=== PATIENT | male | born 1970 | race Caucasian/White ===

== ENCOUNTER 2019-10-07 08:34 | Inpatient (IN) ==
[2019-10-07] MEDS ORDERED: DIATRIZOATE MEGLU/DIATRIZO SOD 30 ML BOTTLE PO ONE (08:35)
[2019-10-07] MEDS ORDERED: IOPAMIDOL 100 ML BOTTLE IV ONE (08:35)
[2019-10-07] MEDS ORDERED: ONDANSETRON 4 MG/2 ML VIAL IV ONE (09:12)
[2019-10-07] MEDS ORDERED: LACTATED RINGERS 1,000 ML IV ONE (09:12)
--- NOTE | 2019-10-07 09:15 | Emergency Department Note ---
General Adult HPI - General Chief complaint: Back Pain/Injury Stated complaint: severe back pain, unable to walk Time Seen by Provider: 10/07/19 08:41 Source: patient, family Mode of arrival: wheelchair Limitations: no limitations - History of Present Illness HPI Narrative: This patient developed left upper quadrant pain yesterday and during the night i t moved to the right upper quadrant and into the right side of the back. This moderately severe and associated with some nausea and vomiting. He said food did not make it worse. He is never had anything like this before. - Related Data Previous Rx's Medication Instructions Recorded metformin 1,000 mg tablet 1,000 mg PO BID #180 tab 01/08/19 insulin glargine 100 unit/mL (3 14 unit SUB-Q QDAY #15 ml 07/23/19 mL) subcutaneous pen glipizide 10 mg tablet, extended 20 mg PO BID #360 tab 10/05/19 release 24 hr penicillin V potassium 500 mg 500 mg PO Q12H #20 tab 10/05/19 tablet Allergies Allergy/AdvReac Type Severity Reaction Status Date / Time No Known Drug Allergies Allergy Verified 10/07/19 08:37 Review of Systems All systems ED: reviewed and negative except as stated. Past Medical History - Past Medical History [facility] Narrative: Medical History (Last Reviewed 07/23/19 @ 08:57 by Jenni Leigh PA-C) Back pain (Chronic) Joint pain (Chronic) Type 2 diabetes mellitus (Chronic) Arthritis (Chronic) Past Surgical History (Last Reviewed 07/23/19 @ 08:57 by Jenni Leigh PA-C) History of colonoscopy (Chronic) History of microdiscectomy (Chronic 09/13/17) History of surgery (Chronic ~2005) Family History (Last Reviewed 07/23/19 @ 08:57 by Jenni Leigh PA-C) Brother Arthritis High blood pressure Sister Arthritis High blood pressure Migraines Mother Cancer of kidney High blood pressure Heart attack Father High blood pressure Heart attack Grandfather Heart attack Family/Other Heart attack Medical history: Reports: DM, other (Chronic back pain) Surgical history ED: Reports: non-contributory - Social History smoking status: Smokeless tobacco Alcohol use: Reports: Unknown Drug use: Reports: none Physical Exam Limitations: no limitations General appearance: alert Head: atraumatic Eye: Present: normal appearance ENT: Present: normal exam Neck: Present: normal inspection Chest: Present: normal inspection Respiratory: Present: normal lung sounds bilaterally Cardiovascular: Present: regular rate, normal rhythm, normal heart sounds Abdominal: Present: soft, tenderness. Absent: distention Abdominal tenderness: Present: RUQ, moderate Back: Present: CVA tenderness (R) Neurological: Present: alert Psychiatric: Present: normal affect Skin: Present: warm, dry Course Vital Signs Temperature 97.2 F 10/07/19 08:35 Pulse Rate 81 10/07/19 08:35 Respiratory Rate 20 10/07/19 08:35 Blood Pressure 152/101 10/07/19 08:35 Pulse Oximetry (%) 100 10/07/19 08:35 Temperature 97.2 F 10/07/19 08:35 Pulse Rate 74 10/07/19 14:17 Respiratory Rate 10/07/19 08:35 Blood Pressure 122/81 10/07/19 14:17 Pulse Oximetry (%) 97 10/07/19 14:17 Medical Decision Making - MDM Narrative Medical decision making narrative: Patient's ultrasound does show some gallstones and a common bile duct is dilated to 12 mm. Patient's white count was elevated at 17,000. He was treated with Zosyn fluid Zofran and Dilaudid and will be admitted by Dr. Pat. - Lab Data Lab results reviewed: Yes I reviewed the patient's lab results. Result diagrams: 10/07/19 09:20 10/07/19 10:20 Lab Results 10/07/19 10/07/19 10/07/19 Range/Units 09:20 09:20 10:20 WBC 17.4 H (4.50-11.00) K/mcL RBC 5.65 (4.63-6.08) M/mcL Hgb 15.7 (13.7-17.5) g/dL Hct 45.8 (40.1-51.0) % MCV 81.1 (80.0-100.0) fL MCH 27.8 (26.0-34.0) pg MCHC 34.3 (31.0-36.0) g/dL RDW 13.2 (11.5-14.5) % Plt Count 53 L (140-440) K/mcL MPV TNP Gran % 63.0 (38.0-78.0) % Lymph % (Auto) 10.4 L (15.5-49.0) % [place] % (Auto) 25.1 H (1.0-12.0) % Eos % (Auto) 0.6 (0.0-7.0) % Baso % (Auto) 0.9 (0.0-2.0) % Gran # 10.98 H (1.80-8.00) K/mcL Lymph # (Auto) 1.80 (1.50-4.80) K/mcL [place] # (Auto) 4.38 H (0.10-0.90) K/mcL Eos # (Auto) 0.10 (0.00-0.70) K/mcL Baso # (Auto) 0.16 (0.00-0.30) K/mcL Differential Comment Sodium TNP 132 L Potassium TNP 4.1 Chloride TNP 98 Carbon Dioxide TNP 22 Anion Gap TNP 12.0 BUN TNP 9 Creatinine TNP 0.9 GFR Calculation Not Reportable 101 Glucose TNP 297 H Calcium TNP 8.7 Total Bilirubin TNP 0.6 AST TNP 14 ALT TNP 16 Alkaline Phosphatase TNP 70 Total Protein TNP 7.5 Albumin TNP 4.1 Globulin TNP 3.4 Albumin/Globulin Ratio TNP 1.2 Lipase TNP 34 Urine Color Urine Appearance Urine pH (5.0-9.0) Ur Specific Comfort (1.000-1.035) Urine Protein (NEG) mg/dL Urine Glucose (UA) (NEG) mg/dL Urine Ketones (NEG) mg/dL Urine Occult Blood (<0.03) mg/dL Urine Nitrate (NEG) Urine Bilirubin (NEG) mg/dL Urine Urobilinogen (NEG) mg/dL Ur Leukocyte Esterase (NEG) /uL Urine RBC (0-1) /hpf Urine WBC (0-4) /hpf Ur Squamous Epith Cells (0-4) /hpf Urine Bacteria (0) /hpf Urine Mucus (0) /hpf Ur Culture Indicated? 10/07/19 Range/Units 11:10 WBC (4.50-11.00) K/mcL RBC (4.63-6.08) M/mcL Hgb (13.7-17.5) g/dL Hct (40.1-51.0) % MCV (80.0-100.0) fL MCH (26.0-34.0) pg MCHC (31.0-36.0) g/dL RDW (11.5-14.5) % Plt Count (140-440) K/mcL MPV Gran % (38.0-78.0) % Lymph % (Auto) (15.5-49.0) % [place] % (Auto) (1.0-12.0) % Eos % (Auto) (0.0-7.0) % Baso % (Auto) (0.0-2.0) % Gran # (1.80-8.00) K/mcL Lymph # (Auto) (1.50-4.80) K/mcL [place] # (Auto) (0.10-0.90) K/mcL Eos # (Auto) (0.00-0.70) K/mcL Baso # (Auto) (0.00-0.30) K/mcL Differential Comment Sodium Potassium Chloride Carbon Dioxide Anion Gap BUN Creatinine GFR Calculation Glucose Calcium Total Bilirubin AST ALT Alkaline Phosphatase Total Protein Albumin Globulin Albumin/Globulin Ratio Lipase Urine Color Yellow Urine Appearance Clear Urine pH 5.0 (5.0-9.0) Ur Specific Comfort 1.035 (1.000-1.035) Urine Protein Neg (NEG) mg/dL Urine Glucose (UA) >=500 A (NEG) mg/dL Urine Ketones Neg (NEG) mg/dL Urine Occult Blood 0.03 A (<0.03) mg/dL Urine Nitrate Neg (NEG) Urine Bilirubin Neg (NEG) mg/dL Urine Urobilinogen Neg (NEG) mg/dL Ur Leukocyte Esterase Neg (NEG) /uL Urine RBC < 1 (0-1) /hpf Urine WBC 1 (0-4) /hpf Ur Squamous Epith Cells 0 (0-4) /hpf Urine Bacteria 0 (0) /hpf Urine Mucus Few (0) /hpf Ur Culture Indicated? No - Radiology Data Radiology results reviewed: Yes I reviewed the patient's radiology results. Disposition Pt seen by CASINO CONTROLLER/PA only: No Clinical Impression: Cholecystitis Disposition: Xfer As Inpt ([facility]) Condition: Good Referrals: Jenni Leigh PA-C [Primary Care Provider] - Time of Disposition: 15:18
[2019-10-07] MEDS: HYDROmorphone 0.5 MG/0.5 ML SYRINGE IV PRN ×2 (09:21→09:52)
[2019-10-07] MEDS: HYDROmorphone 1 MG/ML SYRINGE IV PRN ×6 (10:17→23:34)
[2019-10-07 10:40] LABS: Basophils # (Auto) 0.16 K/mcL (0.00-0.30); Basophils % (Auto) 0.9 % (0.0-2.0); Eosinophils % (Auto) 0.6 % (0.0-7.0); Hematocrit 45.8 % (40.1-51.0); Hemoglobin 15.7 g/dL (13.7-17.5); Lymphocytes % (Auto) 10.4 % (15.5-49.0); Mean Cell Volume 81.1 fL (80.0-100.0); Mean Corpuscular HGB Conc 34.3 g/dL (31.0-36.0); Monocytes # (Auto) 4.38 K/mcL (0.10-0.90); Monocytes % (Auto) 25.1 % (1.0-12.0); Platelet Count 53 K/mcL (140-440); RBC 5.65 M/mcL (4.63-6.08); Red Cell Distribution Width 13.2 % (11.5-14.5); WBC 17.4 K/mcL (4.50-11.00)
[2019-10-07 11:33] LABS: ALT/SGPT 16 U/l (0-40); AST/SGOT 14 U/l (0-37); Albumin 4.1 gm/dL (3.2-5.2); Albumin/Globulin Ratio 1.2 (1.0-2.3); Alkaline Phosphatase 70 U/L (39-117); Bilirubin,Total 0.6 mg/dL (0.0-1.0); Blood Urea Nitrogen 9 mg/dl (6-20); Calcium 8.7 mg/dl (8.6-10.4); Carbon Dioxide 22 mmol/L (22-30); Chloride 98 mmol/L (96-108); Globulin 3.4 gm/dL (2.2-3.7); Glomerular Filtration Rate 101; Glucose 297 mg/dL (70-105)
[2019-10-07] MEDS ORDERED: KETOROLAC 30 MG/ML VIAL IV ONE (11:44)
[2019-10-07 12:00] LABS: Appearance,Urine CLEAR; Bacteria,Urine 0 /hpf (0); Bilirubin,Urine NEG (NEG); Color,Urine YELLOW; Culture Indicated,Urine NO; Glucose,Urine (UA) >=500 mg/dL (NEG); Ketones,Urine NEG (NEG); Leukocyte Esterase,Urine NEG /uL (NEG); Mucus,Urine FEW /hpf (0); Nitrate,Urine NEG (NEG); Protein,Urine NEG (NEG); Specific Gravity,Urine 1.035 (1.000-1.035); Urine Blood 0.03 mg/dL (<0.03); Urine RBC < 1 /hpf (0-1); Urine Squamous Epithelial Cell 0 /hpf (0-4); Urine WBC 1 /hpf (0-4); Urobilinogen,Urine NEG (NEG)
--- NOTE | 2019-10-07 12:35 | Ultrasound Report ---
INDICATION: Right upper quadrant pain TECHNIQUE: Grayscale and color flow Doppler spectral imaging COMPARISON: None. FINDINGS: Gallbladder:Small stones and "gravel" type stones within the gallbladder lumen. There may be two small gallbladder wall polyps. These measure 6 mm maximally. No gallbladder wall thickening. No pericholecystic fluid. Patient seemed tender when scanned over the gallbladder consistent with positive sonographic Escobar's sign. Common bile duct:Common bile duct measures 12 mm maximally. Findings suspicious for choledocholithiasis.. Liver:No solid or cystic hepatic mass. Liver contour is smooth. No ascites.. Portal vein:Normal hepatopedal portal venous flow Pancreas:Visualized portions of the pancreas are normal IMPRESSION: 1. Cholelithiasis. Two small echogenic abnormalities consistent with small gallbladder wall polyps 2. No gallbladder wall thickening or pericholecystic fluid. Positive sonographic Escobar's sign 3. Dilated common bile duct and probable choledocholithiasis Interpreted and Authenticated by: Garcia Leiva 10/07/19
--- NOTE | 2019-10-07 13:43 | Cat Scan Report ---
INDICATION: Diffuse abdominal pain COMPARISON: Previous chest CT scan dated 05/08/2007. Abdominal ultrasound dated 10/07/2019 TECHNIQUE: Axial images were obtained through the chest,abdomen and pelvis. Sagittally and coronally reformatted images. 90ml Isovue 370 injected intravenously. Oral contrast material was not administered FINDINGS: Chest CT: Lungs:Lung bases are abnormal with mild reticular change and groundglass infiltrates. There is no significant bronchiectasis. There is no honeycombing. Mid and upper lungs are negative. Some of this appearance may be due to dependent atelectasis but a true lung disease is possible. Previous chest CT scan demonstrated hilar adenopathy. Biopsy was performed and is nonspecific but rheumatoid is considered possible. These changes at the lung bases may be consistent with collagen vascular disease. No parenchymal mass. No consolidation or typical findings of pneumonia. No significant centrilobular or paraseptal emphysema. Mediastinum:No pathologic mediastinal adenopathy. No hilar mass. Thoracic aorta is normal without aneurysmal dilatation Previous examination demonstrated mediastinal and hilar adenopathy. This has resolved Heart:No significant cardiomegaly. No pericardial effusion Pleura:No pleural fluid. No pleural-based mass. No pleural calcifications Axilla, supraclavicular regions, chest wall:No pathologic axillary or supraclavicular adenopathy Musculoskeletal:Negative thoracic spine. No compression fractures. No lytic lesions. No paraspinal mass Abdomen/Pelvis: Liver:Negative liver. No focal intrahepatic mass. Liver contour is smooth. There is no ascites. Liver appears enlarged and measures approximately 23 cm in length at the midclavicular line Gallbladder, bilary:Gallstones identified on previous ultrasound. They're not optimally visualized on CT scan. No gallbladder wall thickening or pericholecystic fluid. Common bile duct measures 10 mm maximally. No detectable choledocholithiasis. No intrahepatic bile duct dilatation Spleen:Significant splenomegaly. Spleen measures approximately 19 x 25 x 11 cm. No focal intrasplenic abnormality. Normal enhancement splenic and portal veins Pancreas:No pancreatic mass. No peripancreatic abnormality Adrenal glands:Negative Kidneys, ureters, bladder:No solid or cystic renal mass. No hydronephrosis. No hydroureter. No ureteral stones Bladder is grossly negative. No bladder calculi Gastrointestinal:No detectable colonic mass. There is no diverticulitis. Small bowel is negative. No mechanical small bowel obstruction. Stomach and duodenum are within normal limits Appendix: The appendix is negative Vascular:Mild calcification of the abdominal aorta. No abdominal aortic aneurysm. Normal superior mesenteric artery and inferior mesenteric artery. Lymphatic:No pathologic retroperitoneal or mesenteric adenopathy Mesentery, peritoneum:No free intraperitoneal fluid. No intra-abdominal abscess. No pneumoperitoneum Reproductive:Prostate is not significantly enlarged Musculoskeletal:Degenerative disc disease at T12-L1, L1-2, L2-3. No compression fractures. Sacrum and pelvis are negative. Hips are negative IMPRESSION: 1. Mild bilateral lower lobe pulmonary parenchymal density and reticular change. Some of this may be due to dependent atelectasis but interstitial lung disease, perhaps related to collagen vascular disease is possible 2. Interval resolution of hilar and mediastinal adenopathy 3. Splenomegaly 4. Mildly dilated common bile duct without intrahepatic bile duct dilatation The exam was performed using radiation dose optimization techniques including, but not limited to, automated exposure control, adjustment of the mA and/or kV according to patient size and use of iterative reconstruction technique. Interpreted and Authenticated by: Garcia Leiva 10/07/19
[2019-10-07] MEDS ORDERED: PIPERACILLIN SODIUM/TAZOBACTAM 3.375 GM in DEXTROSE 5% IN WATER 50 ML IV ONE (14:54)
[2019-10-07] MEDS ORDERED: PROMETHAZINE 25 MG/ML VIAL IM PRN (15:12)
[2019-10-07] MEDS ORDERED: HYDROmorphone 0.5 MG/0.5 ML SYRINGE IV PRN (15:12)
[2019-10-07] MEDS ORDERED: HYDROmorphone 0.5 MG/0.5 ML SYRINGE IV ONE (17:20)
[2019-10-07] MEDS ORDERED: ONDANSETRON 4 MG/2 ML VIAL IV PRN (17:46)
[2019-10-07] MEDS ORDERED: PROMETHAZINE 25 MG/ML VIAL IV PRN (17:50)
--- NOTE | 2019-10-07 17:57 | General Surg History&Physical ---
History of Present Illness Patient information: Note initiated : 10/07/19 at 5:54 pm Service Date, if different from initiated Date: [] Patient: Gera Tovar a 48 y/o M admitted on 10/07/19 for severe back pain, unable to walk. Chief Complaint: [] HPI: Mr. Tovar is a 48 year old M admitted with cholelithiasis with cholecystitis. 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 The pain shifted to the right side and has become progressively worse since that time. He states that it radiated through to his back. He has not had fever or chills. He has not had jaundice. He finally was seen in the emergency room where ultrasound showed multiple gallstones with a dilated common bile duct of 12 mm with questionable sludge. White blood count is 17,000. CT shows hepatosplenomegaly but no other abnormality. Patient needs to have an MRCP and that's not available today. He is admitted and that will be performed in the morning. If he does not have common bile duct stones he will have laparoscopic cholecystectomy tomorrow. If he has common duct stones he will be referred for ERCP prior to having his gallbladder removed. Review of Systems - Constitutional malaise, weakness - EENT Nose, mouth and throat: facial pain, hoarseness, sore throat (patient states that he was being treated for strep throat) - Cardiovascular no claudication, no dyspnea on exertion, no orthopnea, no rapid heart rate - Respiratory no cough, no dyspnea on exertion, no wheezing, no chest congestion - Gastrointestinal abdominal pain, bloating, cramping, nausea, no heartburn, no vomiting - Musculoskeletal arthralgias, back pain, joint swelling, myalgias, stiffness - Integumentary no pruritus, no rash - Neurological numbness, radicular pain - Hematologic/Lymphatic no easy bleeding, no easy bruising, no lymphadenopathy - Allergic/Immunologic no tongue swelling, no throat swelling, no uticaria, no wheezing, no lip swelling Past History Past medical history: Diabetes mellitus Inflammatory arthritis Past surgical history: Tendon transfer right shoulder 2007 Lumbar fusion 2018 Past family history: Kidney cancer Coronary artery disease Hypertension Past social history: Smokeless tobacco 30 years Occasional alcohol use Denies drug use Medications and Allergies Home Medications Medication Instructions Recorded Confirmed Type metformin 1,000 mg tablet 1,000 mg PO BID #180 tab 01/08/19 10/07/19 Rx insulin glargine 100 unit/mL (3 14 unit SUB-Q QDAY #15 ml 07/23/19 10/07/19 Rx mL) subcutaneous pen glipizide 10 mg tablet, extended 20 mg PO BID #360 tab 10/05/19 10/07/19 Rx release 24 hr penicillin V potassium 500 mg 500 mg PO Q12H #20 tab 10/05/19 10/07/19 Rx tablet Allergies Allergy/AdvReac Type Severity Reaction Status Date / Time No Known Drug Allergies Allergy Verified 10/07/19 08:37 Exam Temp Pulse Resp BP Pulse Ox 98.1 F 81 16 137/82 97 10/07/19 15:55 10/07/19 15:55 10/07/19 15:55 10/07/19 15:55 10/07/19 15:55 - General physical appearance well developed, well nourished, severe distress, severe pain - Eyes PERRL, normal ocular movement. negative: icteric - ENT normal pinna, normal nares, normal mucosa, no hearing loss, no congestion - Head Head exam IM: Present: atraumatic, normocephalic - Neck no masses, no bruits, trachea midline, no lymphadenopathy, no venous distension - Cardiovascular Cardiovascular exam IM: Present: normal rate and rhythm, RRR, +S1, +S2. Absent: JVD, tachycardia - Respiratory normal expansion, normal respiratory effort, clear to auscultation - Abdomen Abdomen: Present: soft, tender (tenderness with guarding and rebound in the epigastrium and right upper quadrant; moderate tenderness midabdomen and left upper quadrant), bowel sounds Hernia: Present: none - Genitourinary Present: normal penis with no external lesions - Rectum Rectum: Present: normal sphincter tone, no hemorrhoids, no tenderness, no masses, no bleeding - Integumentary Present: no rash, no growths, no abnormal pigmentation - Neurologic Present: normal coordination, normal sensation - Musculoskeletal Present: normal gait, normal posture - Psychiatric Present: oriented to time, oriented to person, oriented to place, speech is normal, memory intact Assessment and Plan (1) Cholelithiasis and acute cholecystitis without obstruction Zosyn every 6 hours Toradol 30 mg every 6 hours Acetaminophen IV every 6 hours 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
[2019-10-07] MEDS: ACETAMINOPHEN 650 MG/65 ML BOTTLE IV SCH ×2 (18:27→23:30)
[2019-10-07] MEDS: KETOROLAC 30 MG/ML VIAL IV SCH ×2 (18:27→23:29)
[2019-10-07] MEDS: 0.9 % SODIUM CHLORIDE 1,000 ML IV SCH (18:29)
[2019-10-07] MEDS: PIPERACILLIN SODIUM/TAZOBACTAM 3.375 GM in DEXTROSE 5% IN WATER 50 ML IV SCH (19:19)
[2019-10-07] MEDS: INSULIN LISPRO 1 UNIT/0.01 ML UNIT SQ SCH ×2 (19:22→23:39)
[2019-10-07 20:09] LABS: INR 1.2 (0.9-1.1); Prothrombin Time 15.5 sec (11.9-14.5)
[2019-10-08] MEDS: PIPERACILLIN SODIUM/TAZOBACTAM 3.375 GM in DEXTROSE 5% IN WATER 50 ML IV SCH ×4 (00:11→19:18)
[2019-10-08] MEDS: 0.9 % SODIUM CHLORIDE 1,000 ML IV SCH ×4 (02:39→19:57)
[2019-10-08] MEDS: HYDROmorphone 1 MG/ML SYRINGE IV PRN ×5 (02:40→11:36)
[2019-10-08] MEDS: KETOROLAC 30 MG/ML VIAL IV SCH ×4 (05:18→23:32)
[2019-10-08] MEDS: ACETAMINOPHEN 650 MG/65 ML BOTTLE IV SCH ×4 (05:19→23:44)
[2019-10-08] MEDS: INSULIN LISPRO 1 UNIT/0.01 ML UNIT SQ SCH ×4 (07:17→23:38)
[2019-10-08 07:45] LABS: Basophils % (Auto) 0.9 % (0.0-2.0); Eosinophils # (Auto) 0.02 K/mcL (0.00-0.70); Eosinophils % (Auto) 0.2 % (0.0-7.0); Granulocytes % (Auto) 64.7 % (38.0-78.0); Hematocrit 40.7 % (40.1-51.0); Hemoglobin 13.1 g/dL (13.7-17.5); Lymphocytes # (Auto) 0.92 K/mcL (1.50-4.80); Lymphocytes % (Auto) 8.6 % (15.5-49.0); Mean Corpuscular HGB Conc 32.2 g/dL (31.0-36.0); Mean Platelet Volume 10.7 fL (7.4-10.4); Monocytes # (Auto) 2.73 K/mcL (0.10-0.90); Monocytes % (Auto) 25.6 % (1.0-12.0); Platelet Count 51 K/mcL (140-440); RBC 4.68 M/mcL (4.63-6.08); Red Cell Distribution Width 13.4 % (11.5-14.5); WBC 10.7 K/mcL (4.50-11.00)
[2019-10-08 08:15] LABS: Chloride 96 mmol/L (96-108)
[2019-10-08 08:21] LABS: ALT/SGPT 14 U/l (0-40); AST/SGOT 21 U/l (0-37); Albumin/Globulin Ratio 1.3 (1.0-2.3); Alkaline Phosphatase 88 U/L (39-117); Bilirubin,Direct 0.2 mg/dL (0.0-0.3); Bilirubin,Total 0.8 mg/dL (0.0-1.0); Blood Urea Nitrogen 12 mg/dl (6-20); Calcium 8.3 mg/dl (8.6-10.4); Carbon Dioxide 21 mmol/L (22-30); Globulin 3.1 gm/dL (2.2-3.7); Glomerular Filtration Rate 89; Glucose 232 mg/dL (70-105); Lactate Dehydrogenase 440 U/L (94-250); Phosphorous 3.9 mg/dL (2.7-4.5); Triglycerides 269 mg/dl (<150); Uric Acid 6.3 mg/dL (2.5-8.0)
--- NOTE | 2019-10-08 11:49 | Magnetic Resonance Report ---
INDICATION: dilated CBD WITH GALLSTONES TECHNIQUE: Routine noncontrast MRCP COMPARISON: Previous CT scan dated 10/07/2019. Previous ultrasound dated 10/07/2019 FINDINGS: Ultrasound was suggestive of small gallbladder wall polyps as well as these 2 stones. Present examination demonstrates 2 very small hypointense abnormalities adjacent to the gallbladder wall. These may be very small calculi or gallbladder wall polyps. These measure 5 mm or less. One year follow-up gallbladder ultrasound is recommended. There is no gallbladder wall thickening. No soft tissue mass. Common hepatic duct and common bile duct are presently normal. Common bile duct measures 4 mm. There is no dilatation. No choledocholithiasis. Previous ultrasound was suspicious for choledocholithiasis. These findings may have been spurious or stones may have passed. Liver is negative on this noncontrast enhanced MRI scan. Spleen is enlarged, unchanged since CT scan dated 10/07/2019 No pancreatic mass. No peripancreatic abnormality. Negative adrenal glands. Kidneys are negative IMPRESSION: 1. 2 small hypointense abnormalities within the gallbladder. These may be small polyps or stones. 1 year follow-up ultrasound recommended 2. Normal common hepatic duct and common bile duct. No choledocholithiasis 3. Splenomegaly, unchanged since 10/07/2019 Interpreted and Authenticated by: Garcia Leiva 10/08/19
[2019-10-08] MEDS ORDERED: IPRATROPIUM/ALBUTEROL 3 ML AMPUL.NEB NEB PRN (14:47)
[2019-10-08] MEDS ORDERED: ACETAMINOPHEN 1,000 MG/100 ML BOTTLE IV ONE (14:47)
[2019-10-08] MEDS ORDERED: METHOCARBAMOL 1,000 MG/10 ML VIAL IV PRN (14:47)
[2019-10-08] MEDS ORDERED: fentaNYL 100 MCG/2 ML VIAL IV PRN (14:47)
[2019-10-08] MEDS ORDERED: METOPROLOL TARTRATE 5 MG/5 ML VIAL IV PRN (14:47)
[2019-10-08] MEDS ORDERED: BENZOCAINE/MENTHOL 1 LOZENGE PO PRN (14:47)
[2019-10-08] MEDS ORDERED: LACTATED RINGERS 250 ML IV PRN (14:47)
[2019-10-08] MEDS ORDERED: NALOXONE HCL 0.4 MG/ML VIAL IV PRN (14:47)
[2019-10-08] MEDS ORDERED: LABETALOL 5 MG/ML ML IV PRN (14:47)
[2019-10-08] MEDS ORDERED: FLUMAZENIL 0.1 MG/ML ML IV PRN (14:47)
[2019-10-08] MEDS ORDERED: ONDANSETRON 4 MG/2 ML VIAL IV ONE (14:50)
[2019-10-08] MEDS ORDERED: GLYCOPYRROLATE 0.2 MG/ML VIAL IV ONE (14:50)
[2019-10-08] MEDS ORDERED: SUGAMMADEX SODIUM 200 MG/2 ML VIAL IV ONE (14:50)
[2019-10-08] MEDS ORDERED: SUCCINYLCHOLINE 20 MG/ML ML IV ONE (14:50)
[2019-10-08] MEDS ORDERED: METOPROLOL TARTRATE 5 MG/5 ML VIAL IV ONE (14:50)
[2019-10-08] MEDS ORDERED: KETAMINE 100 MG/ML ML IV ONE (14:50)
[2019-10-08] MEDS ORDERED: LIDOCAINE HCL/PF 100 MG/5 ML SYRINGE IV ONE (14:50)
[2019-10-08] MEDS ORDERED: DEXAMETHASONE 10 MG/ML VIAL IV ONE (14:50)
[2019-10-08] MEDS ORDERED: fentaNYL 250 MCG/5 ML VIAL IV ONE (14:50)
[2019-10-08] MEDS ORDERED: ROCURONIUM 10 MG/ML ML IV ONE (14:50)
[2019-10-08] MEDS ORDERED: PROPOFOL 200 MG/20 ML VIAL IV ONE (14:50)
[2019-10-08] MEDS ORDERED: LACTATED RINGERS 1,000 ML IV SCH (15:00)
--- NOTE | 2019-10-08 16:10 | Brief Operative Note ---
Date of procedure: 10/08/19 Pre-op diagnosis: ACUTE CHOLECYSTITIS WITH CHOLELITHIASIS Post-op diagnosis: other (ACUTE CHOLECYSTITIS WITH CHOLELITHIASIS) Procedure: LAPAROSCOPIC CHOLECYSTECTOMY Grafts/Implants: No Anesthesia: GETA Findings: EDEMATOUS THICKENED GALLBLADDER Complications: none Surgeon: Car Pat Estimated blood loss (cc): 15 Specimens Removed/Pathology: other (GALLBLADDER) Condition: stable Disposition: PACU
[2019-10-08] MEDS ORDERED: PROMETHAZINE 25 MG/ML VIAL IV PRN (17:42)
[2019-10-08] MEDS ORDERED: ONDANSETRON 4 MG/2 ML VIAL IV PRN (17:42)
[2019-10-08] MEDS ORDERED: HYDROmorphone 1 MG/ML SYRINGE ONE (18:07)
[2019-10-09] MEDS: PIPERACILLIN SODIUM/TAZOBACTAM 3.375 GM in DEXTROSE 5% IN WATER 50 ML IV SCH ×5 (00:13→23:44)
[2019-10-09] MEDS: 0.9 % SODIUM CHLORIDE 1,000 ML IV SCH ×5 (01:35→17:38)
[2019-10-09] MEDS: KETOROLAC 30 MG/ML VIAL IV SCH ×2 (05:25→11:01)
[2019-10-09] MEDS: INSULIN LISPRO 1 UNIT/0.01 ML UNIT SQ SCH ×3 (05:44→17:59)
[2019-10-09] MEDS: ACETAMINOPHEN 650 MG/65 ML BOTTLE IV SCH ×4 (05:45→23:53)
[2019-10-09 07:38] LABS: ALT/SGPT 33 U/l (0-40); AST/SGOT 38 U/l (0-37); Albumin 3.5 gm/dL (3.2-5.2); Albumin/Globulin Ratio 1.1 (1.0-2.3); Alkaline Phosphatase 91 U/L (39-117); Bilirubin,Direct 0.2 mg/dL (0.0-0.3); Bilirubin,Total 0.7 mg/dL (0.0-1.0); Blood Urea Nitrogen 10 mg/dl (6-20); Calcium 7.9 mg/dl (8.6-10.4); Carbon Dioxide 20 mmol/L (22-30); Chloride 102 mmol/L (96-108); Globulin 3.1 gm/dL (2.2-3.7); Glomerular Filtration Rate 101; Glucose 206 mg/dL (70-105); Phosphorous 3.5 mg/dL (2.7-4.5); Triglycerides 175 mg/dl (<150); Uric Acid 4.6 mg/dL (2.5-8.0)
[2019-10-09 07:39] LABS: Lactate Dehydrogenase 629 U/L (94-250)
[2019-10-09 09:00] LABS: Basophils # (Auto) 0.05 K/mcL (0.00-0.30); Basophils % (Auto) 0.3 % (0.0-2.0); Eosinophils # (Auto) 0.03 K/mcL (0.00-0.70); Eosinophils % (Auto) 0.2 % (0.0-7.0); Granulocytes % (Auto) 66.9 % (38.0-78.0); Hematocrit 36.2 % (40.1-51.0); Hemoglobin 12.4 g/dL (13.7-17.5); Lymphocytes # (Auto) 0.85 K/mcL (1.50-4.80); Lymphocytes % (Auto) 5.5 % (15.5-49.0); Mean Cell Volume 81.5 fL (80.0-100.0); Mean Corpuscular HGB Conc 34.3 g/dL (31.0-36.0); Mean Platelet Volume 10.8 fL (7.4-10.4); Monocytes # (Auto) 4.15 K/mcL (0.10-0.90); Monocytes % (Auto) 27.1 % (1.0-12.0); Platelet Count 46 K/mcL (140-440); RBC 4.44 M/mcL (4.63-6.08); Red Cell Distribution Width 13.2 % (11.5-14.5); WBC 15.3 K/mcL (4.50-11.00)
--- NOTE | 2019-10-09 14:31 | General Surgery Progress Note ---
Subjective Patient reports: feels better, pain is less, tolerating liquids well, flatus, bowel movement, afebrile Narrative: Note initiated : 10/09/19 at 2:29 pm Service Date, if different from initiated Date: [] Patient: Gera Tovar 48 y/o M admitted on 10/07/19 for severe back pain, unable to walk. Chief Complaint: [patient is status post laparoscopic cholecystectomy. He states that he feels much better. He denies nausea and most of his preoperative pain in the right subhepatic area has resolved. He denies nausea. He is having some bleeding through his TIMMY drain. There is poor clotting compatible with his thrombocytopenia. Platelet count is 46,000 today which is slightly down from yesterday. Hemoglobin is 12.4 and hematocrit 30 6..] Objective Temp Pulse Resp BP Pulse Ox 98.2 F 87 18 127/81 96 10/09/19 12:26 10/09/19 11:46 10/09/19 11:46 10/09/19 11:46 10/09/19 11:46 - Additional Data Intake & Output - Last 24 hours: Intake & Output 10/07/19 10/08/19 10/09/19 10/10/19 05:59 05:59 05:59 05:59 Intake Total 4095 4280 1989 Output Total 400 2725 1780 Balance 3695 1555 210 Weight 262 lb 11.2 oz 264 lb - General physical appearance well developed, well nourished, no distress - Eyes PERRL, normal ocular movement - ENT normal pinna, normal nares, normal mucosa, no hearing loss, no congestion - Neck no masses, no bruits, trachea midline, no lymphadenopathy, no venous distension - Respiratory normal expansion, normal respiratory effort, clear to auscultation - Cardiovascular Cardiovascular exam: Present: normal rate and rhythm, RRR, +S1, +S2. Absent: JVD, tachycardia - Abdomen tender (mild tenderness around port sites but otherwise benign abdomen), bowel sounds (present), surgical scars (none), masses (none) - Integumentary no rash, no growths, no abnormal pigmentation - Neurologic normal coordination, normal sensation - Musculoskeletal normal gait, normal posture - Psychiatric oriented to time, oriented to person, oriented to place, speech is normal, memory intact - Labs 10/09/19 05:38 10/09/19 05:38 Diabetes panel 10/09/19 Range/Units 05:38 Sodium 135 (133-145) mmol/L Potassium 4.3 (3.3-5.1) mmol/L Chloride 102 (96-108) mmol/L Carbon Dioxide 20 L (22-30) mmol/L BUN 10 (6-20) mg/dl Creatinine 0.9 (0.7-1.2) mg/dl Glucose 206 H (70-105) mg/dL Calcium 7.9 L (8.6-10.4) mg/dl AST 38 H (0-37) U/l ALT 33 (0-40) U/l Alkaline Phosphatase 91 (39-117) U/L Total Protein 6.6 (5.9-8.4) gm/dL Albumin 3.5 (3.2-5.2) gm/dL Triglycerides 175 H (<150) mg/dl Calcium panel 10/09/19 Range/Units 05:38 Calcium 7.9 L (8.6-10.4) mg/dl Phosphorus 3.5 (2.7-4.5) mg/dL Albumin 3.5 (3.2-5.2) gm/dL Pituitary panel 10/09/19 Range/Units 05:38 Sodium 135 (133-145) mmol/L Potassium 4.3 (3.3-5.1) mmol/L Chloride 102 (96-108) mmol/L Carbon Dioxide 20 L (22-30) mmol/L BUN 10 (6-20) mg/dl Creatinine 0.9 (0.7-1.2) mg/dl Glucose 206 H (70-105) mg/dL Calcium 7.9 L (8.6-10.4) mg/dl Adrenal panel 10/09/19 Range/Units 05:38 Sodium 135 (133-145) mmol/L Potassium 4.3 (3.3-5.1) mmol/L Chloride 102 (96-108) mmol/L Carbon Dioxide 20 L (22-30) mmol/L BUN 10 (6-20) mg/dl Creatinine 0.9 (0.7-1.2) mg/dl Glucose 206 H (70-105) mg/dL Calcium 7.9 L (8.6-10.4) mg/dl Total Bilirubin 0.7 (0.0-1.0) mg/dL AST 38 H (0-37) U/l ALT 33 (0-40) U/l Alkaline Phosphatase 91 (39-117) U/L Total Protein 6.6 (5.9-8.4) gm/dL Albumin 3.5 (3.2-5.2) gm/dL Assessment and Plan (1) Cholelithiasis and acute cholecystitis without obstruction Status: Acute Assessment and plan: Patient is clinically improved status post cholecystectomy. Current Visit: Yes (2) Type 2 diabetes mellitus Status: Chronic Assessment and plan: Controlled with sliding scale insulin coverage Current Visit: No (3) Thrombocytopenia Status: Acute Assessment and plan: Patient will be treated with short course of steroids to determine if it will improve the platelet count. If unsuccessful he will have to be evaluated by hematology. Current Visit: Yes - Time Spent With Patient Total time spent is greater than 50% in coordination of care (as documented) at patient's floor/unit and/or counseling patient:
[2019-10-09] MEDS: HYDROmorphone 1 MG/ML SYRINGE IV PRN ×2 (17:42→23:52)
[2019-10-09] MEDS: methylPREDNISolone SOD SUCC 125 MG/2 ML VIAL IV SCH ×2 (17:42→23:42)
[2019-10-10] MEDS: INSULIN LISPRO 1 UNIT/0.01 ML UNIT SQ SCH ×6 (00:03→21:52)
[2019-10-10] MEDS: 0.9 % SODIUM CHLORIDE 1,000 ML IV SCH ×4 (00:42→16:14)
[2019-10-10] MEDS: ACETAMINOPHEN 650 MG/65 ML BOTTLE IV SCH ×3 (05:45→17:54)
[2019-10-10] MEDS: PIPERACILLIN SODIUM/TAZOBACTAM 3.375 GM in DEXTROSE 5% IN WATER 50 ML IV SCH ×3 (05:45→17:55)
[2019-10-10] MEDS: methylPREDNISolone SOD SUCC 125 MG/2 ML VIAL IV SCH ×3 (05:45→17:54)
[2019-10-10 07:16] LABS: Basophils # (Auto) 0.09 K/mcL (0.00-0.30); Basophils % (Auto) 0.6 % (0.0-2.0); Eosinophils # (Auto) 0.03 K/mcL (0.00-0.70); Eosinophils % (Auto) 0.2 % (0.0-7.0); Granulocytes % (Auto) 74.5 % (38.0-78.0); Hematocrit 37.2 % (40.1-51.0); Hemoglobin 12.4 g/dL (13.7-17.5); Lymphocytes # (Auto) 1.08 K/mcL (1.50-4.80); Lymphocytes % (Auto) 7.2 % (15.5-49.0); Mean Corpuscular HGB Conc 33.3 g/dL (31.0-36.0); Mean Platelet Volume 10.7 fL (7.4-10.4); Monocytes # (Auto) 2.65 K/mcL (0.10-0.90); Monocytes % (Auto) 17.5 % (1.0-12.0); Platelet Count 55 K/mcL (140-440); RBC 4.43 M/mcL (4.63-6.08); Red Cell Distribution Width 13.3 % (11.5-14.5); WBC 15.1 K/mcL (4.50-11.00)
[2019-10-10 07:46] LABS: ALT/SGPT 32 U/l (0-40); AST/SGOT 25 U/l (0-37); Albumin 3.6 gm/dL (3.2-5.2); Albumin/Globulin Ratio 1.1 (1.0-2.3); Alkaline Phosphatase 96 U/L (39-117); Bilirubin,Direct 0.2 mg/dL (0.0-0.3); Bilirubin,Total 0.7 mg/dL (0.0-1.0); Blood Urea Nitrogen 13 mg/dl (6-20); Calcium 8.1 mg/dl (8.6-10.4); Carbon Dioxide 20 mmol/L (22-30); Chloride 100 mmol/L (96-108); Globulin 3.4 gm/dL (2.2-3.7); Glomerular Filtration Rate 106; Glucose 243 mg/dL (70-105); Phosphorous 3.1 mg/dL (2.7-4.5); Triglycerides 180 mg/dl (<150); Uric Acid 4.7 mg/dL (2.5-8.0)
[2019-10-10 07:52] LABS: Lactate Dehydrogenase 602 U/L (94-250)
--- NOTE | 2019-10-10 10:55 | Surgical Pathology Report ---
HISTOLOGY SPECIMEN MICROSCOPIC DIAGNOSIS GALLBLADDER, CHOLECYSTECTOMY: -- CHRONIC CHOLECYSTITIS WITH CHOLELITHIASIS. (RLF:adj) CLINICAL HISTORY Severe back pain, unable to walk. PROCEDURAL IMPRESSION Cholelithiasis with acute cholecystitis. GROSS DESCRIPTION Received in formalin labeled gallbladder, is a gayle-jovel gallbladder that measures 8.3 x 3.5 x 1.6 cm. There are multiple metal clips identified, including one on the duct. There is a 0.6 cm black stone identified. The mucosa is green-jovel with a few areas of variegated raised yellow pigmentation. The wall is up to 0.2 cm thick with up to 0.3 cm of attached pink-jovel fat. Air Intercept Controller sections submitted in one cassette. (SCB:sln) Electronically Signed by: Tiffanie Rees M.D.
[2019-10-10] MEDS ORDERED: MAGNESIUM HYDROXIDE 30 ML ORAL.SUSP PO PRN (18:25)
--- NOTE | 2019-10-10 18:34 | General Surgery Progress Note ---
Subjective Patient reports: feels better, pain is less, tolerating a regular diet, flatus, bowel movement, afebrile Narrative: Note initiated : 10/10/19 at 6:32 pm Service Date, if different from initiated Date: [] Patient: Gera Tovar 48 y/o M admitted on 10/07/19 for severe back pain, unable to walk. Chief Complaint: [the patient states that he feels better. He does have some constipation. He has significant output via his TIMMY with his hemoglobin remained stable at 12.4. Platelets are still decreased but have increased to 55,000. White blood count 15.1 hemoglobin 12.4, hematocrit 37.2, potassium 4.6, BUN 13, creatinine 0.8.] Objective Temp Pulse Resp BP Pulse Ox 97.9 F 88 20 147/81 98 10/10/19 16:00 10/10/19 16:00 10/10/19 16:00 10/10/19 16:00 10/10/19 16:00 - Additional Data Intake & Output - Last 24 hours: Intake & Output 10/08/19 10/09/19 10/10/19 10/11/19 05:59 05:59 05:59 05:59 Intake Total 4095 4280 4770 3900 Output Total 400 2725 4630 3590 Balance 3695 1555 140 310 Weight 262 lb 11.2 oz 264 lb 264 lb 14.4 oz - General physical appearance well developed, well nourished, no distress - Eyes PERRL, normal ocular movement - ENT normal pinna, normal nares, normal mucosa, no hearing loss, no congestion - Neck no masses, no bruits, trachea midline, no lymphadenopathy, no venous distension - Respiratory normal expansion, normal respiratory effort, clear to auscultation - Cardiovascular Cardiovascular exam: Present: normal rate and rhythm, RRR, +S1, +S2. Absent: JVD, tachycardia - Abdomen tender (tenderness around port sites otherwise benign abdomen), bowel sounds (present), surgical scars (none), masses (none) - Integumentary no rash, no growths, no abnormal pigmentation - Neurologic normal coordination, normal sensation - Musculoskeletal normal gait, normal posture - Psychiatric oriented to time, oriented to person, oriented to place, speech is normal, memory intact - Labs 10/10/19 05:34 10/10/19 05:34 Diabetes panel 10/10/19 Range/Units 05:34 Sodium 133 (133-145) mmol/L Potassium 4.6 (3.3-5.1) mmol/L Chloride 100 (96-108) mmol/L Carbon Dioxide 20 L (22-30) mmol/L BUN 13 (6-20) mg/dl Creatinine 0.8 (0.7-1.2) mg/dl Glucose 243 H (70-105) mg/dL Calcium 8.1 L (8.6-10.4) mg/dl AST 25 (0-37) U/l ALT 32 (0-40) U/l Alkaline Phosphatase 96 (39-117) U/L Total Protein 7.0 (5.9-8.4) gm/dL Albumin 3.6 (3.2-5.2) gm/dL Triglycerides 180 H (<150) mg/dl Calcium panel 10/10/19 Range/Units 05:34 Calcium 8.1 L (8.6-10.4) mg/dl Phosphorus 3.1 (2.7-4.5) mg/dL Albumin 3.6 (3.2-5.2) gm/dL Pituitary panel 10/10/19 Range/Units 05:34 Sodium 133 (133-145) mmol/L Potassium 4.6 (3.3-5.1) mmol/L Chloride 100 (96-108) mmol/L Carbon Dioxide 20 L (22-30) mmol/L BUN 13 (6-20) mg/dl Creatinine 0.8 (0.7-1.2) mg/dl Glucose 243 H (70-105) mg/dL Calcium 8.1 L (8.6-10.4) mg/dl Adrenal panel 10/10/19 Range/Units 05:34 Sodium 133 (133-145) mmol/L Potassium 4.6 (3.3-5.1) mmol/L Chloride 100 (96-108) mmol/L Carbon Dioxide 20 L (22-30) mmol/L BUN 13 (6-20) mg/dl Creatinine 0.8 (0.7-1.2) mg/dl Glucose 243 H (70-105) mg/dL Calcium 8.1 L (8.6-10.4) mg/dl Total Bilirubin 0.7 (0.0-1.0) mg/dL AST 25 (0-37) U/l ALT 32 (0-40) U/l Alkaline Phosphatase 96 (39-117) U/L Total Protein 7.0 (5.9-8.4) gm/dL Albumin 3.6 (3.2-5.2) gm/dL Assessment and Plan (1) Cholelithiasis and acute cholecystitis without obstruction Status: Acute Assessment and plan: Patient is clinically improved status post cholecystectomy. Current Visit: Yes (2) Type 2 diabetes mellitus Status: Chronic Assessment and plan: Controlled with sliding scale insulin coverage Current Visit: No (3) Thrombocytopenia Status: Acute Assessment and plan: Platelet count increased to 55,000. Hemoglobin is stable Current Visit: Yes - Time Spent With Patient Total time spent is greater than 50% in coordination of care (as documented) at patient's floor/unit and/or counseling patient:
[2019-10-10] MEDS ORDERED: DEXTROSE 50% 50 ML VIAL IV PRN (20:40)
[2019-10-10] MEDS ORDERED: DEXTROSE 31 GM ORAL.SUSP PO PRN (20:40)
[2019-10-10] MEDS ORDERED: INSULIN LISPRO 1 UNIT/0.01 ML UNIT SQ ONE (21:49)
[2019-10-11] MEDS: HYDROmorphone 1 MG/ML SYRINGE IV PRN (00:15)
[2019-10-11] MEDS: 0.9 % SODIUM CHLORIDE 10 ML SYRINGE IV SCH ×2 (00:16→06:12)
[2019-10-11] MEDS: methylPREDNISolone SOD SUCC 125 MG/2 ML VIAL IV SCH ×3 (00:19→11:20)
[2019-10-11] MEDS: PIPERACILLIN SODIUM/TAZOBACTAM 3.375 GM in DEXTROSE 5% IN WATER 50 ML IV SCH ×3 (00:23→11:19)
[2019-10-11] MEDS: ACETAMINOPHEN 650 MG/65 ML BOTTLE IV SCH ×3 (00:27→11:18)
[2019-10-11] MEDS: INSULIN LISPRO 1 UNIT/0.01 ML UNIT SQ SCH ×2 (08:22→11:19)
[2019-10-11 09:23] LABS: Basophils # (Auto) 0.09 K/mcL (0.00-0.30); Basophils % (Auto) 0.5 % (0.0-2.0); Eosinophils # (Auto) 0.02 K/mcL (0.00-0.70); Eosinophils % (Auto) 0.1 % (0.0-7.0); Granulocytes % (Auto) 75.2 % (38.0-78.0); Hematocrit 40.1 % (40.1-51.0); Hemoglobin 13.4 g/dL (13.7-17.5); Lymphocytes % (Auto) 6.7 % (15.5-49.0); Mean Cell Volume 82.7 fL (80.0-100.0); Mean Corpuscular HGB Conc 33.4 g/dL (31.0-36.0); Mean Platelet Volume 11.3 fL (7.4-10.4); Monocytes # (Auto) 3.38 K/mcL (0.10-0.90); Monocytes % (Auto) 17.5 % (1.0-12.0); Platelet Count 62 K/mcL (140-440); RBC 4.85 M/mcL (4.63-6.08); Red Cell Distribution Width 13.3 % (11.5-14.5); WBC 19.3 K/mcL (4.50-11.00)
--- NOTE | 2019-10-11 13:20 | Discharge Summary ---
Providers - Providers Patient information: Note initiated : 10/11/19 at 1:18 pm Service Date, if different from initiated Date: [] Patient: Gera Tovar 48 y/o M admitted on 10/07/19 for severe back pain, unable to walk. Chief Complaint: [] Date of admission: 10/07/19 Discharge date: 10/11/19 Attending physician: Car Pat Hospitalization Hospital Course: 48-year-old male who presented to the emergency room with complaints of severe abdominal pain with nausea. Evaluation suggested acute cholecystitis with cholelithiasis and dilated common bile duct. MRCP was done and did not show any evidence of common bile duct stone. The patient was counseled for laparoscopic cholecystectomy. He had thrombocytopenia with platelet count of 53,000 on admission. It was felt that this was adequate to get him through the laparoscopic procedure. Cholecystectomy was done uneventfully on 07 October. On the day postop his platelet counts dropped to 46,000. He did have some bloody output through his TIMMY drain but there was no change in his hemoglobin. He was started on Solu-Medrol and his platelets have increased to 62,000. The patient has done well otherwise. The output through his drain is decreased in volume and the blood is thinner. 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 Reason for admission: acute cholecystitis with cholelithiasis Procedures: Laparoscopic cholecystectomy Pertinent studies/significant findings: CT of abdomen and pelvis Upper abdominal ultrasound MRCP Complications: None Exam Temp Pulse Resp BP Pulse Ox 99.3 F H 88 20 153/88 96 10/11/19 12:56 10/11/19 12:56 10/11/19 12:56 10/11/19 12:56 10/11/19 12:56 - General physical appearance well developed, well nourished, no distress - Eyes PERRL, normal ocular movement - ENT normal pinna, normal nares, normal mucosa, no hearing loss, no congestion - Head Head exam IM: Present: atraumatic, normocephalic - Neck no masses, no bruits, trachea midline, no lymphadenopathy, no venous distension - Cardiovascular Cardiovascular exam IM: Present: normal rate and rhythm - Respiratory normal expansion, normal respiratory effort, clear to percussion, clear to auscultation - Abdomen Abdomen: Present: soft, tender (mild tenderness around port sites and drain), bowel sounds, wound ( TIMMY drain with bloody drainage) Hernia: Present: none - Genitourinary Present: normal penis with no external lesions - Integumentary Present: no rash, no growths, no abnormal pigmentation - Neurologic Present: normal coordination, normal sensation - Musculoskeletal Present: normal gait, normal posture - Psychiatric Present: oriented to time, oriented to person, oriented to place, speech is normal, memory intact Discharge Plan - Patient/Caregiver Discharge Instructions Activity: increase activity as tolerated Diet: Regular Diet Prescriptions: oxyCODONE HCL/ACETAMINOPHEN [Endocet 10-325 mg Tablet] 1 tab PO Q4H PRN #30 tab PRN Reason: Pain Prescription Printed oxyCODONE/APAP [Percocet 5-325 mg] 1 tab PO Q4HP PRN #40 tab PRN Reason: Pain Transmission Status: Pending to [address] predniSONE [Prednisone] 20 mg PO BID #30 tab Transmission Status: Pending to [address] - Follow up Plan Follow up with: Jenni Leigh PA-C [Primary Care Provider] - Disposition: Home, Self-Care Prognosis: Good Rehab Potential: Good I certify that the patient requires SNF services.: No Overall status at discharge: patient is progressing back to baseline Pending Studies Resuscitation Status Full Code Diet GI Soft/Transitional Start TueOct 08 [id number] Diagnostic Test (Pha) (Accu-Chek) 1 each FS ACHS [facility] Last Admin: 10/11/19 11:19 Dose: 1 each Documented by: Admin: 10/11/19 07:56 Dose: 1 each Documented by: Admin: 10/10/19 21:41 Dose: 1 each Documented by: FREDERICK Hydromorphone HCl (Dilaudid) 1 mg IV Q2HP PRN; Protocol PRN Reason: Per Pain Protocol Last Admin: 10/11/19 00:15 Dose: 1 mg Documented by: Admin: 10/09/19 23:52 Dose: 1 mg Documented by: Admin: 10/09/19 17:42 Dose: 1 mg Documented by: TERRA Acetaminophen (Ofirmev) 650 mg in 65 mls @ 130 mls/hr IV Q6 [facility]; Protocol Last Admin: 10/11/19 11:18 Dose: 100 mls/hr Documented by: Infusion: 10/11/19 07:12 Dose: 0 mls/hr Documented by: Admin: 10/11/19 06:12 Dose: 65 mls/hr Documented by: Infusion: 10/11/19 01:27 Dose: 65 mls/hr Documented by: Admin: 10/11/19 00:27 Dose: 65 mls/hr Documented by: [email or web address] Infusion: 10/10/19 18:54 Dose: 65 mls/hr Documented by: Admin: 10/10/19 17:54 Dose: 65 mls/hr Documented by: Infusion: 10/10/19 14:12 Dose: 0 mls/hr Documented by: Admin: 10/10/19 13:24 Dose: 65 mls/hr Documented by: Infusion: 10/10/19 06:15 Dose: 0 mls/hr Documented by: Admin: 10/10/19 05:45 Dose: 130 mls/hr Documented by: Infusion: 10/10/19 00:23 Dose: 130 mls/hr Documented by: Admin: 10/09/19 23:53 Dose: 130 mls/hr Documented by: Infusion: 10/09/19 18:13 Dose: 130 mls/hr Documented by: Admin: 10/09/19 17:43 Dose: 130 mls/hr Documented by: Infusion: 10/09/19 13:03 Dose: 130 mls/hr Documented by: Admin: 10/09/19 11:41 Dose: 130 mls/hr Documented by: Infusion: 10/09/19 09:33 Dose: 130 mls/hr Documented by: Infusion: 10/09/19 09:19 Dose: 130 mls/hr Documented by: Infusion: 10/09/19 06:01 Dose: 0 mls/hr Documented by: Admin: 10/09/19 05:45 Dose: 130 mls/hr Documented by: Infusion: 10/09/19 00:14 Dose: 130 mls/hr Documented by: Admin: 10/08/19 23:44 Dose: 130 mls/hr Documented by: Admin: 10/08/19 18:01 Dose: Not Given Documented by: [email or web address] Piperacillin Sod/Tazobactam (Sod 3.375 gm/ Dextrose) 50 mls @ 100 mls/hr IV Q6H [facility]; Protocol Last Admin: 10/11/19 11:19 Dose: 100 mls/hr Documented by: Infusion: 10/11/19 06:41 Dose: 0 mls/hr Documented by: Admin: 10/11/19 06:11 Dose: 100 mls/hr Documented by: Infusion: 10/11/19 00:53 Dose: 100 mls/hr Documented by: Admin: 10/11/19 00:23 Dose: 100 mls/hr Documented by: Infusion: 10/10/19 18:25 Dose: 100 mls/hr Documented by: Admin: 10/10/19 17:55 Dose: 100 mls/hr Documented by: Infusion: 10/10/19 12:55 Dose: 0 mls/hr Documented by: Admin: 10/10/19 12:25 Dose: 100 mls/hr Documented by: Infusion: 10/10/19 06:15 Dose: 0 mls/hr Documented by: Admin: 10/10/19 05:45 Dose: 100 mls/hr Documented by: Infusion: 10/10/19 00:14 Dose: 100 mls/hr Documented by: Admin: 10/09/19 23:44 Dose: 100 mls/hr Documented by: Infusion: 10/09/19 18:55 Dose: 100 mls/hr Documented by: Admin: 10/09/19 18:25 Dose: 100 mls/hr Documented by: Infusion: 10/09/19 11:54 Dose: 100 mls/hr Documented by: Admin: 10/09/19 11:02 Dose: 100 mls/hr Documented by: Infusion: 10/09/19 07:02 Dose: 100 mls/hr Documented by: Admin: 10/09/19 05:46 Dose: 100 mls/hr Documented by: Infusion: 10/09/19 00:43 Dose: 100 mls/hr Documented by: Admin: 10/09/19 00:13 Dose: 100 mls/hr Documented by: Infusion: 10/08/19 19:48 Dose: 100 mls/hr Documented by: Admin: 10/08/19 19:18 Dose: 100 mls/hr Documented by: [email or web address] Insulin Human Lispro (Humalog) 0 unit SQ ACHS [facility]; Protocol Last Admin: 10/11/19 11:19 Dose: 10 units Documented by: Admin: 10/11/19 08:22 Dose: 10 units Documented by: Admin: 10/10/19 21:52 Dose: Not Given Documented by: FREDERICK Magnesium Hydroxide (Milk Of Magnesia) 30 ml PO ONCE PRN PRN Reason: Constipation Last Admin: 10/10/19 21:49 Dose: 30 ml Documented by: FREDERICK Methylprednisolone Sodium Succinate (Solu-Medrol) 62.5 mg IV Q6 [facility] Last Admin: 10/11/19 11:20 Dose: 62.5 mg Documented by: Admin: 10/11/19 06:12 Dose: 62.5 mg Documented by: Admin: 10/11/19 00:19 Dose: 62.5 mg Documented by: Admin: 10/10/19 17:54 Dose: 62.5 mg Documented by: Admin: 10/10/19 12:25 Dose: 62.5 mg Documented by: Admin: 10/10/19 05:45 Dose: 62.5 mg Documented by: Admin: 10/09/19 23:42 Dose: 62.5 mg Documented by: Admin: 10/09/19 17:42 Dose: 62.5 mg Documented by: TERRA Sodium Chloride (Saline Flush) 10 ml IV Q8 [facility] Last Admin: 10/11/19 06:12 Dose: 10 ml Documented by: Admin: 10/11/19 00:16 Dose: 10 ml Documented by: FREDERICK Shift Summary 10/11/19 11:31 Shift Summary by Mecca Juan Pt. is alert and oriented x4, pleasant and cooperative with cares. Pt. reports having little pain with some tenderness. TIMMY output has slowed significantly since yesterday. VS are stable on RA. Appetite intact. Blood sugars running in the 300's this shift. Labs came back with an increase in platelets from 55- 62. WBC increased from 15.1-19.3. Pt. is hopeful that he can go home today. Update at bedside. Initialized on 10/11/19 11:31 - END OF NOTE
--- NOTE | 2019-10-29 15:05 | Operative Note ---
DATE OF OPERATION: 10/08/2019 PREOPERATIVE DIAGNOSIS: Acute cholecystitis with cholelithiasis. POSTOPERATIVE DIAGNOSIS: Acute cholecystitis with cholelithiasis. PROCEDURE: Laparoscopic cholecystectomy. SURGEON: Car Pat M.D. FINDINGS: An edematous, thickened gallbladder. DESCRIPTION OF PROCEDURE: Under general anesthesia, the patient's abdomen was prepped and draped in a sterile field. Supraumbilical incision was made and Veress needle was inserted uneventfully. Abdomen was insufflated with 3 liters of CO2. A 10 mm port was placed. Laparoscope was placed. Under videoscopic guidance, a 10 mm port and two 5 mm ports were placed in the right subcostal region. The gallbladder was densely adherent to the surrounding structures. Dissection was carried out using blunt dissection. The gallbladder was grasped and positioned. Cystic duct and cystic artery were sequentially dissected and followed back to the gallbladder. Cystic duct was transected using Endo DOMINGO stapler. Cystic artery was dissected and clipped with four clips and divided. The gallbladder was then from the infrahepatic space using electrocautery. Hemostasis was achieved. The gallbladder was placed in an Endopouch and retrieved. CO2 was allowed to escape from the abdomen and the ports were removed. Fascia at the umbilicus was closed with interrupted 0 Vicryl. Skin incisions were closed with jagdish. The patient tolerated the procedure well. Tegaderm dressings were placed. He was awakened, transferred to a bed, and taken to the postanesthetic care unit in stable, satisfactory condition. LCS:tanya Job ID: [id number] Doc ID: [id number] Car Pat M.D.
== END 2019-10-11 15:20 | disposition home or self-care (01) | DRG 418 ==
LOC: ED 08:34 → MEDSUR 15:42
PROVIDERS: ADMIT Family Medicine Adult Medicine; ATTEND Family Medicine Adult Medicine